=== PATIENT | female | born 1945 | race Caucasian/White ===

== ENCOUNTER 2020-05-15 13:17 | Outpatient (REF) | payer MEDICARE, OTHER, SELFPAY | END 2020-05-15 13:18 | disposition home or self-care (01) | LOC: HO.LAB 13:17 | PROVIDERS: Visit Provider Internal Medicine | DX: Z20.822 Contact with and (suspected) exposure to COVID-19 (principal) | CPT/HCPCS: 36415; C9803; U0003; U0005 ==

== ENCOUNTER 2022-09-09 10:00 | Outpatient (RCR) | payer MEDICARE, OTHER, SELFPAY | END 2022-09-09 11:09 | disposition home or self-care (01) | LOC: HO.PT 10:00 | PROVIDERS: PCP Internal Medicine; Visit Provider Internal Medicine | DX: M54.9 Dorsalgia, unspecified (principal) | CPT/HCPCS: 97110; 97161; 97530 ==